=== PATIENT | male | born 1965 | race Caucasian/White ===

== ENCOUNTER 2016-08-23 17:52 | Emergency (ER) | payer MEDICAID, OTHER, SELFPAY | END 2016-08-23 18:20 | disposition home or self-care (01) | LOC: MADERS 17:52 | DX: L01.00 Impetigo, unspecified (principal); F17.210 Nicotine dependence, cigarettes, uncomplicated; Z86.73 Personal history of transient ischemic attack (TIA), and cerebral infarction without residual deficits | CPT/HCPCS: 99282 ==

== ENCOUNTER 2017-04-29 20:49 | Emergency (ER) | payer MEDICAID ==
[~2017-04-29 20:49] MED LIST: Iopamidol 370 76% 100 ML VIAL ONE
[2017-04-29 21:35] LABS: PTT 24.8 SEC (22.9-36.1); Prothrombin Time 13.2 SEC (12.0-14.7)
[2017-04-29 21:43] LABS: ALT (SGPT) 13 U/L (8-55); AST (SGOT) 17 U/L (5-34); Albumin 4.6 g/dL (3.5-5.0); Alkaline Phosphatase 73 U/L (40-150); Anion Gap 17 mmol/L (10-20); BUN (Urea Nitrogen) 15 mg/dL (8.9-20.6); Bilirubin, Total 0.4 mg/dL (0.2-1.2); Calc. Creatinine Clearance 0 mL/min (70-130); Calcium 9.9 mg/dL (7.8-10.44); Carbon Dioxide 24 mmol/L (22-29); Chloride 104 mmol/L (98-107); Estimated GFR-MDRD 78; Globulin 2.8 g/dL (2.4-3.5); Glucose 84 mg/dL (70-105); Potassium 4.3 mmol/L (3.5-5.1); Protein, Total 7.4 g/dL (6.0-8.3); Sodium 141 mmol/L (136-145)
--- NOTE | 2017-04-29 21:43 | RAD ---
SEMI UPRIGHT PORTABLE CHEST ONE VIEW: History: 52-year-old male with syncope. Comparison: 06-21-13 FINDINGS: Inspiration is less than optimal. Heart size is normal. The lungs are clear. IMPRESSION: No acute intrathoracic disease. POS: [facility]
[2017-04-29 21:44] LABS: CKMB 2.3 ng/mL (0-6.6); Troponin I Less than 0.010 ng/mL (< 0.028)
--- NOTE | 2017-04-29 21:45 | CT ---
BRAIN CT WITHOUT IV CONTRAST: History: 52-year-old male with weakness. Comparison: 06-20-15 FINDINGS: No focal mass or midline shift. No intra or extraaxial hemorrhage. Sinuses and mastoids are clear. IMPRESSION: No acute intracranial process. No mass or bleed. Stable from prior study. POS: [facility]
[2017-04-29 21:46] LABS: #Basophils 0.1 thou/uL (0.0-0.2); #Eosinphils 0.1 thou/uL (0.0-0.7); #Monocytes 0.7 thou/uL (0.11-0.59); #Neutrophils 9.5 thou/uL (1.40-6.50); %Basophils 1.1 % (0.0-1.0); %Eosinophils 0.6 % (0.0-10.0); %Lymphocytes 9.2 % (21.0-51.0); %Monocytes 5.7 % (0.0-10.0); %Neutrophils 83.4 % (42.0-75.0); Acetaminophen Less than 6.0 mcg/mL (10.0-30.0); Alcohol Less than 10 mg/dL (Less than 10); CK (CPK) 175 U/L (30-200); Hemoglobin 16.6 g/dL (14.0-18.0); Magnesium 2.1 mg/dL (1.6-2.6); Mean Corpuscular HGB CONC 34.8 g/dL (32.0-36.0); Mean Corpuscular Hemoglobin 34.3 pg (27.0-31.0); Mean Corpuscular Volume 98.7 fl (80.0-94.0); Mean Platelet Volume 9.2 fL (7.4-10.4); Platelet Count 150 thou/uL (130-400); RBC Distribution Width 11.1 % (11.5-14.5); Red Blood Cell (RBC) Count 4.85 mill/uL (4.70-6.10); Salicylate Less than 8.0 mg/dL (15.0-30.0); White Blood Cell (WBC) Count 11.4 thou/uL (4.8-10.8)
[2017-04-29 21:47] LABS: MDiff Complete? YES; Macrocytosis SLIGHT = 6-15 cells (100X) (0-5/hpf); RBC Morphology ABNORMAL
[2017-04-29 22:15] LABS: Bilirubin Negative (Negative); Blood, Urine Negative (Negative); Clarity Clear (Clear); Glucose, Urine (Dipstick) Negative (Negative); Leukocyte Negative (Negative); Nitrite Negative (Negative); Protein, Urine (Dipstick) Trace mg/dL (Neg-Trace); Urobilinogen 0.2 mg/dL (0.2-1.0)
[2017-04-29 22:19] LABS: Bacteria/HPF None Seen HPF (None Seen); RBC/HPF 0-3 HPF (0-3); Squamous Epithelial 0-3 HPF (0-3); WBC/HPF 0-3 HPF (0-3)
[2017-04-29 22:26] LABS: Amphetamine Not Detected (NotDetected); Barbiturates Screen Not Detected (NotDetected); Benzodiazepine Screen Not Detected (NotDetected); Cocaine Metabolite Screen Not Detected (NotDetected); Methadone Not Detected (NotDetected); Methamphetamine Not Detected (NotDetected); Opiate Screen Not Detected (NotDetected); Oxycodone Screen Not Detected (NotDetected); Phencyclidine (PCP) Not Detected (NotDetected); THC/Cannabinoid Screen Not Detected (NotDetected); Tricyclic Screen Not Detected (NotDetected)
[2017-04-29 22:27] LABS: Medtox Control Line Valid? VALID (VALID)
[2017-04-30] MEDS ORDERED: Cephalexin 500 MG CAP ONE (01:47)
[2017-04-30] MEDS ORDERED: Naproxen 500 MG TAB ONE (01:47)
--- NOTE | 2017-04-30 09:23 | CT ---
PRELIMINARY REPORT/[facility]/EMERGENCY AFTER HOURS PROCEDURE: EXAM: CT Abdomen and Pelvis With Intravenous Contrast CLINICAL HISTORY: 52 years old, male; Pain; Abdominal pain; Localized; Left lower quadrant (llq) TECHNIQUE: Axial computed tomography images of the abdomen and pelvis with intravenous contrast. Coronal reformatted images were created and reviewed. CONTRAST: 90 mL of ISOVUE 370 administered intravenously. COMPARISON: No relevant prior studies available. FINDINGS: Lower thorax: There is a large calculus in the right base of the urinary bladder measuring a maximum of 14 mm, possibly an intrinsic urinary bladder calculus. There is minimal bibasilar atelectatic ch haim or scarring. ABDOMEN: Liver: Unremarkable. No mass. Gallbladder and bile ducts: Unremarkable. No calcified stones. No ductal dilation. Pancreas: Unremarkable. No mass. No ductal dilation. Spleen: Unremarkable. No splenomegaly. Adrenals: Unremarkable. No mass. Kidneys and ureters: There is a nonobstructive bilateral nephrolithiasis. Stomach and bowel: Unremarkable. No obstruction. No mucosal thickening. Appendix: The appendix is unremarkable and seen best on axial image 63 of series 2. PELVIS: Bladder: Unremarkable. No mass. Reproductive: Unremarkable as visualized. ABDOMEN and PELVIS: Intraperitoneal space: Unremarkable. No free air. No significant fluid collection. Bones/joints: There are mild degenerative changes of the spine. No acute fracture. No dislocation. Soft tissues: Unremarkable. Vasculature: Unremarkable. No abdominal aortic aneurysm. Lymph nodes: Unremarkable. No enlarged lymph nodes. IMPRESSION: 1. There is a nonobstructive bilateral nephrolithiasis. 2. There is a large calculus in the right base of the urinary bladder measuring a maximum of 14 mm, possibly an intrinsic urinary bladder calculus. Thank you for allowing us to participate in the care of your patient. Dictated and Authenticated by: Noam Robbins MD 04/30/2017 12:47 AM Central Time ([place] \T\ [place]) FINAL REPORT EMERGENCY AFTER HOURS CT ABDOMEN AND PELVIS WITH IV CONTRAST: Date: 04/30/17 HISTORY: Left lower quadrant abdominal pain. Near syncope. IMPRESSION: 1. Nonobstructing bilateral nephrolithiasis. Largest calculus is seen in the superior pole left kid elaina measuring 9.0 mm. 2. No ureteral calculus is seen, but there is a large calculus in base of the urinary bladder measu ring approximately 14.0 mm. 3. Subcentimeter, too small to characterize, hypodense lesions in each lobe of the liver with large , approximately 1.8 cm low density lesion in the posterior segment right hepatic lobe demonstrating fluid attenuation likely related to a small cyst. Additional smaller lesions are too small to furthe r characterize. 4. No CT evidence of appendicitis. 5. Small, fat-containing bilateral inguinal hernias. 6. No acute findings are seen in the abdomen or pelvis. There are extrarenal pelves bilaterally wit h mild caliectasis present, some of which could be related to distention of the urinary bladder. 7. Small, noncalcified, pleural based pulmonary nodule measuring 5.0 mm. Linear densities are seen at each lung base, probably related to atelectasis. Findings are in agreement with the preliminary report by Ernestine. POS: [facility]
== END 2017-04-30 02:00 | disposition home or self-care (01) ==
LOC: MADERS 20:49
DX: K57.92 Diverticulitis of intestine, part unspecified, without perforation or abscess without bleeding (principal); R55 Syncope and collapse; F17.210 Nicotine dependence, cigarettes, uncomplicated
CPT/HCPCS: 36415; 70450; 71010; 74177; 80053; 80306; 80307; 81001; 82553; 83735; 83880; 84484; 85025; 85610; 85730; 87086; 93005; 94760

== ENCOUNTER 2017-12-12 14:57 | Emergency (ER) | payer OTHER, SELFPAY ==
[~2017-12-12 14:57] MED LIST changes: +Sodium Chloride 0.9% 1,000 ML BAG ONE
[2017-12-12] MEDS ORDERED: Ondansetron HCl/PF 4 MG/2 ML Vial ONE (15:21)
[2017-12-12] MEDS ORDERED: Fentanyl 100 MCG/2 ML VIAL ONE (15:21)
[2017-12-12 15:47] LABS: #Basophils 0.1 thou/uL (0.0-0.2); #Eosinphils 0.2 thou/uL (0.0-0.7); #Lymphocytes 1.6 thou/uL (1.20-3.40); #Monocytes 0.5 thou/uL (0.11-0.59); #Neutrophils 3.6 thou/uL (1.40-6.50); %Basophils 1.1 % (0.0-1.0); %Lymphocytes 27.4 % (21.0-51.0); %Monocytes 8.4 % (0.0-10.0); Hemoglobin 16.1 g/dL (14.0-18.0); Mean Corpuscular HGB CONC 34.6 g/dL (32.0-36.0); Mean Corpuscular Hemoglobin 32.6 pg (27.0-31.0); Mean Corpuscular Volume 94.4 fl (80.0-94.0); Mean Platelet Volume 9.4 fL (7.4-10.4); Platelet Count 136 thou/uL (130-400); RBC Distribution Width 11.2 % (11.5-14.5); Red Blood Cell (RBC) Count 4.92 mill/uL (4.70-6.10); White Blood Cell (WBC) Count 5.9 thou/uL (4.8-10.8)
[2017-12-12 16:03] LABS: Anion Gap 14 mmol/L (10-20); BUN (Urea Nitrogen) 14 mg/dL (8.9-20.6); Calc. Creatinine Clearance 0 mL/min (70-130); Calcium 9.2 mg/dL (7.8-10.44); Carbon Dioxide 25 mmol/L (22-29); Chloride 106 mmol/L (98-107); Estimated GFR-MDRD 80; Glucose 77 mg/dL (70-105); Potassium 3.9 mmol/L (3.5-5.1); Sodium 141 mmol/L (136-145)
[2017-12-12 17:58] LABS: Bilirubin Negative (Negative); Blood, Urine Moderate (Negative); Glucose, Urine (Dipstick) Negative (Negative); Leukocyte Negative (Negative); Nitrite Negative (Negative); Protein, Urine (Dipstick) Negative (Neg-Trace); Specific Gravity, Urine 1.015 (1.005-1.030); Urobilinogen 0.2 mg/dL (0.2-1.0); pH, Urine 5.5 (5.0-9.0)
[2017-12-12 18:09] LABS: Bacteria/HPF Rare-Few HPF (None Seen); Clarity Hazy (Clear); Squamous Epithelial 0-3 HPF (0-3); WBC/HPF 0-3 HPF (0-3)
--- NOTE | 2017-12-12 18:41 | CT ---
CT ABDOMEN AND PELVIS WITH IV CONTRAST: 12/12/17 Multiple axial tomograms obtained through the abdomen and pelvis with IV enhancement. INDICATIONS: Left abdominal pain. History of kidney stones and lithotripsy. Comparison made to prior CT abdomen and pelvis dated 04/30/17. FINDINGS: Lung bases are clear. Images of the liver again show low density lesions consistent with hepatic cysts. These are stable. T he largest measures approximately 1.7 cm in the inferior right lobe. The spleen and pancreas are unremarkable. The stomach is unremarkable. Adrenal glands normal. Review of the kidneys reveal nonobstructing calculi in the upper collecting structures of both kidney s. On the right, there are at least three calculi in the mid and upper pole collecting structures keanu suring 5 to 8 mm. In the left kidney, there is a 10 mm calculus in the upper pole collecting structur es with an 8 mm calculus in the mid pole collecting structures. There is left hydronephrosis and there is a calculus in the mid left ureter which measures 5 to 6 mm. There continues to be a large calculus in the bladder to the right of midline just beyond the right U VJ. This was described on the exam of 04/30/17 and has not significantly changed in size or position. This large calculus measures 1.4 cm. Small bowel loops unremarkable. Colon unremarkable. Prostate mildly enlarged and heterogeneous. The urinary bladder is distended. Aorta normal caliber. IMPRESSION: 1. There is an obstructing calculus measuring 5 to 6 mm in the mid left ureter. 2. Nonobstructing calculi in the upper collecting structures of both kidneys as described. 3. There is a large 1.4 cm rounded calculus in the floor of the bladder to the right of midline which appears just beyond the UVJ. This is not significantly changed in size or appearance when wyatt red to the CT of 04/30/17. 4. There are hepatic cysts which appear stable. 5. Prostatic hypertrophy with heterogeneous prostate, similar appearance to 04/30/17. POS: [facility]
[2017-12-12] MEDS ORDERED: Ketorolac Tromethamine 30 MG/ML VIAL ONE (19:30)
== END 2017-12-12 19:45 | disposition home or self-care (01) ==
LOC: MADERS 14:57
DX: N13.2 Hydronephrosis with renal and ureteral calculous obstruction (principal); F17.210 Nicotine dependence, cigarettes, uncomplicated; Z86.73 Personal history of transient ischemic attack (TIA), and cerebral infarction without residual deficits; Z87.01 Personal history of pneumonia (recurrent)
CPT/HCPCS: 74177; 80048; 81003; 81015; 85025; 96361; 96374; 96375; J1885; J2405; J3010; J7050